=== PATIENT | male | born 1960 | race Caucasian/White ===

== ENCOUNTER 2020-01-10 10:32 | Emergency (ER) | payer SELFPAY ==
--- NOTE | ~2020-01-10 | XR_ITS ---
EXAMINATION: XR ankle RT min 3V EXAM DATE: 01/10/2020 11:02 INDICATION: Initial encounter following injury, with pain of the right ankle. TECHNIQUE: Right ankle frontal, lateral and oblique projections obtained and reviewed. There is no p rior study for comparison. FINDINGS: There is oblique fracture through the right distal fibular metaphysis extending into the s uperolateral aspect of the ankle joint. There is about 1 cm of lateral translation of the fibula, natalya us with respect to the tibial plafond, with disruption of the deltoid ligament, widened mortise media lly. Closed, posttraumatic fracture. IMPRESSION: Right distal fibular metaphyseal fracture into widened mortise. Deltoid ligament disrupt ion. Reviewed, dictated and finalized at location A. IMPRESSION: Right distal fibular metaphyseal fracture into widened mortise. De ltoid ligament disruption.
--- NOTE | ~2020-01-10 | XR_ITS ---
EXAMINATION: XR ankle RT 2V EXAM DATE: 01/10/2020 11:58 INDICATION: Post reduction. TECHNIQUE: Frontal and lateral projections of the right ankle. Comparison is made to prior examinati on from earlier same date. FINDINGS: There is been partial reduction in the amount of lateral translation right talus with respe ct to the tibial plafond. Oblique distal fibular fracture into widened mortise again demonstrated. Di srupted deltoid ligament. A splint has been applied. Orthopedic consult. IMPRESSION: Splinted partially reduced right ankle fracture dislocation. Reviewed, dictated and finalized at location A.
[2020-01-10 10:41] VITALS: BP 142/76; PULSE 62; RESP 18; TEMP 36.3; O2SAT 99
--- NOTE | 2020-01-10 10:53 | ED.LOWEXIN ---
HPI - Extremity Injury (Lower) General Chief Complaint: Extremity Injury, Lower Stated Complaint: r ankle injury Time Seen by Provider: 01/10/20 10:44 Source: patient Mode of arrival: ambulatory Limitations: no limitations History of Present Illness HPI Narrative: Patient is a 59-year-old male who presents to the emergency department with complaint of right ankle injury. Patient was going down a hill and slipped with his left foot causing his left ankle to invert. Patient felt a pop. He crawled back up the hill and was able to put some weight on his right foot, but felt as though his ankle was unstable. Patient has noticed swelling. Patient denies any other injuries or complaints. He took Advil on the way to the hospital. complaint: ankle injury Onset (ago): hour(s) Injury: Right: ankle Type of Injury: inversion Place: street/outdoors Context: fall Associated symptoms: snap/pop sensation, swelling and able to partially bear weight Other symptoms: none Treatments prior to arrival: NSAIDS (400 mg ibuprofen just prior to arrival) Related Data Home Medications Medication Instructions Recorded Confirmed cholecalciferol (vitamin D3) 10 mcg PO DAILY 01/10/20 glucosamine sulfate [Glucosamine] 500 mg PO BID 01/10/20 ycdiaizwpyji-xyf-onwy-FA-vit K 1 tablet PO DAILY 01/10/20 [Adults Multivitamin] Allergies Allergy/AdvReac Type Severity Reaction Status Date / Time No Known Allergies Allergy Verified 01/10/20 10:45 Review of Systems Review of Systems: All systems reviewed & are unremarkable except as noted in HPI and below PMFSH Past Medical History Medical History No significant past medical history Surgical History Surgical History No significant past surgical history Social History Social History (Updated 01/10/20 @ 11:00 by Mariposa Choe MD) Smoking status: Never smoker Gender identity (if verbalized by the patient): Male Exam Const: General: cooperative, no acute distress and alert Nutritional Appearance: well nourished Orientation/consciousness: patient oriented x3 Limitations: no limitations HENMT: Mouth: Yes lip normal and Yes moist mucous membranes Cardio: Rate: regular rate Rhythm: regular rhythm Peripheral pulses: posterior tibial pulses present bilateral 2+ and dorsalis pedis present bilateral 2+ Skin: General skin exam: normal color Neuro: General: patient oriented x3 Cognition (Neuro): normal cognition Speech: normal speech Extrem: General: no clubbing, cyanosis or edema Right lower extremity: lower leg Details: other (Pretibial venous varicosities) and ankle Details: tenderness Location: of the lateral malleolus and of the medial malleolus and swelling Details: diffusely Psych: Mental Status: mental status grossly normal Affect: normal affect Attitude: cooperative Course Course Emergency Course: Patient with distal fibular fracture Consultations Consultation #1: Case discussed with Dr. Desir. Advised patient should call the office first thing Sunday morning to arrange for follow-up care and potentially go to surgery that day if possible. Date: 01/10/20 Time: 12:00 Vital Signs Vital signs: Vital Signs Temperature 97.3 F L 01/10/20 10:41 Pulse Rate 62 01/10/20 10:41 Respiratory Rate 18 01/10/20 10:41 Blood Pressure 142/76 H 01/10/20 10:41 Pulse Oximetry 99 01/10/20 10:41 Temperature 97.3 F L 01/10/20 10:41 Pulse Rate 62 01/10/20 10:41 Respiratory Rate 18 01/10/20 10:41 Blood Pressure 142/76 H 01/10/20 10:41 Pulse Oximetry 99 01/10/20 10:41 Procedures Orthopedic Splinting/Casting Injury #1: Splinting/Casting Date: 01/10/20 Splinting/Casting Time: 11:45 Side: right Lower Extremity Injury Location: ankle Lower Extremity Immobilizer: posterior splint and stirrup splint S
[2020-01-10 12:49] VITALS: BP 138/83; PULSE 61; RESP 18; O2SAT 99
== END 2020-01-10 13:30 | disposition home or self-care (01) ==
PROVIDERS: Emergency Provider Emergency Medicine
DX: S89.391A Other physeal fracture of lower end of right fibula, initial encounter for closed fracture (principal); S93.421A Sprain of deltoid ligament of right ankle, initial encounter; W17.81XA Fall down embankment (hill), initial encounter
CPT/HCPCS: 29515; 73600; 73610; 99284

== ENCOUNTER 2020-01-13 01:05 | Day surgery (SDC) | payer SELFPAY ==
[2020-01-12 14:09] VITALS: BMI 29.1
[2020-01-13] VITALS (7 sets, daily range): BP systolic 117–151; BP diastolic 70–93; PULSE 70–80; RESP 10–20; TEMP 36.1–36.7; O2SAT 98–100; BMI 29.4
--- NOTE | ~2020-01-13 | XR_ITS ---
EXAMINATION: XR surgery orthopedic DATE: 01/13/2020 11:26 INDICATION: Right ankle fracture fixation TECHNIQUE: 5 fluoroscopic spot images of the right ankle were obtained during procedure performed by Dr. Desir. Radiologist was not present for the imaging or procedure. The amount of fluoroscopy time used during this procedure was 7.5 minutes. COMPARISON: 01/10/2020 FINDINGS: Interval reduction and internal fixation of the oblique distal fibular fracture with interfragmentary screws and lateral plate and screws. A metallic button lies along the base of the medial malleolus a t the end of one of 2 lucent tract extending across the distal tibia and fibula likely for tightrope type syndesmotic fixation. Alignment of the fixation appears near-anatomic. Tibiotalar joint space ap pears normal with congruent ankle mortise. No other fractures identified. Expected small amount of po stoperative gas in the surrounding soft tissues. IMPRESSION: 1. Near-anatomic alignment post internal fixation of a distal fibular fracture including distal tibio fibular syndesmotic fixation. See procedure note for further detail. Reviewed, dictated and finalized at location A. IMPRESSION: 1. Near-anatomic alignment post internal fixation of a distal fibular fracture including distal tibiofibular syndesmotic fixation. See procedure note for furt her detail.
[2020-01-13] MEDS: LACTATED RINGERS 1,000 ML 30 ML IV CONT ×2 (08:20→11:56)
[2020-01-13] MEDS: CELECOXIB 200 MG CAPSULE PO (08:44)
--- NOTE | 2020-01-13 09:06 | WPDANESEPPF ---
Anes - Initial Pre Proc Eval Procedure: Operation Date: 01/13/20 09:30 Proposed Procedures p Closed Reduction, Possible Splinting, Possible Open Reduction Internal Fixation Lateral Malleolous Right Ankle - Nitesh Desir MD Date/Time: 01/13/20 09:06 Surgeon: Nitesh Desir MD Pre Op Diagnosis: Right Ankle Fracture Patient Data Age: 59 Gender: M Height: 6 ft Weight: 98.5 kg Last Vital Signs Temp 98.1 F 01/13/20 08:20 Pulse 76 01/13/20 08:20 Resp 16 01/13/20 08:20 BP 139/93 H 01/13/20 08:20 Pulse Ox 98 01/13/20 08:20 Allergies Allergy/AdvReac Type Severity Reaction Status Date / Time No Known Allergies Allergy Verified 01/13/20 08:38 Home Medications Medication Instructions Recorded Confirmed Type cholecalciferol (vitamin D3) 10 mcg PO DAILY 01/10/20 01/13/20 History glucosamine sulfate [Glucosamine] 500 mg PO BID 01/10/20 01/13/20 History htkfthoamufp-qcj-vlmc-FA-vit K 1 tablet PO DAILY 01/10/20 01/13/20 History [Adults Multivitamin] Patient hx anesthesia problems: none Family hx anesthesia problems: none PMFSH Social History Social History Smoking status: Never smoker Gender identity (if verbalized by the patient): Male Anes - Eval Final PreProcedure Day of Procedure 01/13/20 09:06 Patient weight: normal Heart: regular rate and rhythm Lungs: clear to auscultation Airway: Mallampati scale class II Neurological: alert and oriented Last oral intake: >/= 8 hours ASA classification: II Emergent: no Anesthetic plan: proceed Anesthesia type and monitoring: general LMA and standard monitoring Informed Consent: The patient's anesthetic plan and its attendant risks and benefits were discussed with the patient/family/POA. Questions were solicited and answers provided to the satisfaction of the patient/family/POA.
--- NOTE | 2020-01-13 09:35 | WPDHPUPDATE1 ---
History and Physical Update Update Date/Time: 01/13/20 09:35 History and Physical has been reviewed, including an updated exam of the patient. There are NO changes in the patient's condition. Risks, benefits, and alternatives have been discussed and questions answered. Patient agrees to proceed with procedure.
[2020-01-13] MEDS: ceFAZolin 2 GM/D5W 50 ML 2 GM/50 ML BAG IVPB (09:41)
--- NOTE | 2020-01-13 12:05 | PM.OP ---
Procedure Note - Brief Procedure Note - Brief Date of procedure: 01/13/20 Pre-op diagnosis: Right Ankle Fracture Post-op diagnosis: same Procedure performed: ORIF RIGHT LATERAL MALLEOLUS WITH SYNDESMOSIS TIGHT ROPE Anesthesia: GETA Surgeon: Nitesh Desir MD Estimated blood loss (mL): 20 Drains: No Complications: No immediate complications Condition: stable Disposition: PACU
--- NOTE | 2020-01-13 13:06 | OP_ITS ---
DATE OF PROCEDURE: 01/13/2020 PREOPERATIVE DIAGNOSIS: Right lateral malleolus fracture with widened syndesmosis. POSTOPERATIVE DIAGNOSIS: Right lateral malleolus fracture with widened syndesmosis. PROCEDURE: Open reduction internal fixation of the right lateral malleolus with syndesmotic fixation. ANESTHESIA: General. COMPLICATIONS: None. INDICATIONS: This is a 59-year-old male who fell injuring his right ankle and sustained a displaced lateral malleolus fracture with syndesmotic widening. He was indicated for right open reduction internal fixation lateral malleolus and syndesmotic fixation. DESCRIPTION OF PROCEDURE: The patient was taken to the operating room in stable condition and placed in supine position. General anesthesia was induced and then the right lower extremity was prepped and draped sterilely from the toes to the thigh. The skin was in good condition. There was no blistering. There was some mild swelling. There was no significant ecchymosis on the lateral side. Tourniquet was inflated and the incision was made over the lateral aspect of the ankle down to the subcutaneous tissues. Dissection continued and the superficial peroneal nerve was identified and was preserved and dissection continued down the fracture site. The wound was irrigated thoroughly, and then hematoma was removed from the fracture site and then using the fracture clamps, the main part of the fracture was reduced to anatomic position. There was also another part of the fracture, which was a floating piece in the posterior aspect of the fibula that was also reduced to the main fracture fragments. A 6 hole Arthrex plate then was placed over the fracture fragments bridging the fracture fragments in good position, and then 2 lag screws were used to lag the posterior fragment capturing that and securing into the main fracture fragment. Once that was performed, then under fluoroscopic guidance, a tightrope type implant was placed through both the fibula and the tibia, and then was sutured down in standard fashion. X-rays were then taken. The medial side of the ankle was stressed and there was no widening and it appeared that the reduction of the fibula had reduced the syndesmosis well and I feel the medial widening was not significant. Fixation showed that both the AP, mortise and lateral views were in anatomic position. The wound was irrigated thoroughly. The tourniquet was deflated. Bleeders were cauterized. The deeper layers were approximated with 2-0 Vicryl suture, subcutaneous tissue approximated 3-0 Vicryl and skin was approximated with moe. Wounds were washed, placed sterile dressing and then a Scott Skinner plaster splint was applied. The patient was extubated and sent to Recovery. Rocío I MT: Steve
== END 2020-01-13 13:32 | disposition home or self-care (01) ==
PROVIDERS: PCP Internal Medicine; Visit Provider Orthopaedic Surgery
PROC: (CPT 27829; principal; 2020-01-13 09:30)
DX: S82.61XA Displaced fracture of lateral malleolus of right fibula, initial encounter for closed fracture (principal); S93.431A Sprain of tibiofibular ligament of right ankle, initial encounter; W19.XXXA Unspecified fall, initial encounter
CPT/HCPCS: 27829; 27792; A9270; C1713; J0690; J1100; J1170; J2250; J2405; J2704; J3010; J7120

== ENCOUNTER 2020-05-03 15:18 | Outpatient (NON) | payer SELFPAY | END 2020-05-03 15:19 | PROVIDERS: PCP Internal Medicine; Visit Provider Orthopaedic Surgery | DX: S90.01XA Contusion of right ankle, initial encounter (principal) | CPT/HCPCS: 36415; 87070; 87075; 87147; 87186; 87205 ==

== ENCOUNTER 2020-08-23 10:19 | Outpatient (CLI) | payer OTHER, SELFPAY ==
[2020-08-23 10:48] LABS: Hematocrit 46.2 % (42.0-52.0); Hemoglobin 15.5 g/dL (14.0-18.0); Mean Corpuscular HGB Conc 33.5 g/dl (32-36); Mean Corpuscular Hemoglobin 29.4 pg (26-34); Mean Corpuscular Volume 87.5 fl (80-100); Mean Platelet Volume 10.2 fl (7.4-10.4); Platelet Count Result 235 k/mm3 (150-375); Red Blood Count 5.28 M/mm3 (4.6-6.20); Red Cell Distribution Width 12.7 % (11.5-14.5); White Blood Count 9.2 K/mm3 (4.5-10.0)
[2020-08-23 11:03] LABS: CRP 1.6 mg/dL (<1.0)
== END 2020-08-23 10:20 | disposition home or self-care (01) ==
PROVIDERS: PCP Internal Medicine; Visit Provider Orthopaedic Surgery
DX: S90.01XA Contusion of right ankle, initial encounter (principal); T81.41XA Infection following a procedure, superficial incisional surgical site, initial encounter
CPT/HCPCS: 36415; 85027; 86140

== ENCOUNTER 2020-08-25 14:53 | Observation (INO) | payer OTHER, SELFPAY ==
[2020-08-23 14:00] VITALS: BMI 26.0
[2020-08-24] VITALS (11 sets, daily range): BP systolic 116–150; BP diastolic 69–91; PULSE 65–90; RESP 10–18; TEMP 36.2–36.7; O2SAT 96–100
[2020-08-24] MEDS: CELECOXIB 200 MG CAPSULE PO (10:32)
[2020-08-24] MEDS: ACETAMINOPHEN 500 MG TABLET 1000 MG PO (10:32)
[2020-08-24] MEDS: LACTATED RINGERS 1,000 ML 30 ML IV CONT ×2 (10:40→13:38)
--- NOTE | 2020-08-24 11:23 | WPDHPUPDATE1 ---
History and Physical Update Update Date/Time: 08/24/20 11:23 History and Physical has been reviewed, including an updated exam of the patient. There are NO changes in the patient's condition. Risks, benefits, and alternatives have been discussed and questions answered. Patient agrees to proceed with procedure.
--- NOTE | 2020-08-24 11:29 | WPDANESEPP ---
Anes - Eval Pre Procedure Procedure: Operation Date: 08/24/20 11:30 Proposed Procedures p Removal Hardware Right Ankle - Nitesh Desir MD s Incision And Drainage Right Ankle - Nitesh Desir MD Date/Time: 08/24/20 11:29 Pre Op Diagnosis: Right Ankle Infected Hardware Patient Data Age: 59 Gender: M Height: 1.83 m Weight: 86.4 kg Last Vital Signs Temp 36.6 C 08/24/20 09:59 Pulse 90 08/24/20 09:59 Resp 14 08/24/20 09:59 BP 139/91 H 08/24/20 09:59 Pulse Ox 100 08/24/20 09:59 Allergies Allergy/AdvReac Type Severity Reaction Status Date / Time No Known Allergies Allergy Verified 08/23/20 13:42 Home Medications Medication Instructions Recorded Confirmed Type Adults Multivitamin 1 tablet PO DAILY 01/10/20 08/24/20 History ascorbate calcium (vitamin C) 1,000 mg PO DAILY 08/23/20 08/24/20 History suavziz-qyzctjfav-uljh 1 tablet PO DAILY 08/23/20 08/24/20 History cholecalciferol (vitamin D3) 500 mcg PO DAILY 08/23/20 08/24/20 History turmeric 500 mg PO DAILY 08/23/20 08/24/20 History Patient hx anesthesia problems: none Family hx anesthesia problems: none PMFSH Past Medical History Medical History (Updated 08/23/20 @ 13:27 by Nitesh Desir MD) Abscess involving suture Hematoma of right ankle Surgical History Surgical History History of open reduction and internal fixation (ORIF) procedure Rt ankle Social History Social History Smoking status: Never smoker Living arrangements: with family Gender identity (if verbalized by the patient): Male Spiritual care concerns: No Exam Day of Procedure 08/24/20 11:29 Patient weight: overweight Heart: regular rate and rhythm Lungs: normal air movement Airway: Mallampati scale class II Neurological: alert and oriented
--- NOTE | 2020-08-24 11:35 | WPDANESEFPP ---
Anes - Eval Final PreProcedure Day of Procedure 08/24/20 11:35 Patient weight: overweight Heart: regular rate and rhythm Lungs: clear to auscultation Airway: Mallampati scale class II Neurological: alert and oriented Last oral intake: >/= 8 hours ASA classification: II Emergent: no Anesthetic plan: proceed Anesthesia type and monitoring: general LMA and standard monitoring Informed Consent: The patient's anesthetic plan and its attendant risks and benefits were discussed with the patient/family/POA. Questions were solicited and answers provided to the satisfaction of the patient/family/POA.
--- NOTE | 2020-08-24 13:35 | PM.PROC ---
Procedure Note - Detailed Date of procedure: 08/24/20 Pre-op diagnosis: Right Ankle Infected Hardware Post-op diagnosis: same Procedure performed: REMOVAL OF HARDWARE AND I AND D RIGHT ANKLE Description of procedure: THE PATIENT WAS TAKEN TO THE OR AND PLACED UNDER GENERAL ANESTHESIA. THE RIGHT LEG WAS PREPPED AND DRAPED IN THE USUAL FASHION. AN INCISION WAS MADE OVER THE OLD INCISION ON THE LATERAL SIDE OF THE ANKLE. DISSECTION CONTINUED DOWN TO BONE AND THE HARDWARE WAS SEEN. THERE WAS PURULENCE OOZING FROM THE WOUND. CULTURES AND A GRAM STAIN WERE TAKEN. VANCOMYCIN WAS STARTED. THE HARDWARE WAS REMOVED IN ITS ENTIRETY. A SMALL INCISION WAS MADE ON THE MEDIAL SIDE OF THE ANKLE IN ORDER TO REMOVE THE TIGHTROPE BUTTON. THE FRACTURE WAS HEALED COMPLETELY. THERE WAS NO SIGN OF NONUNION. THERE WAS NO SIGN OF GROSS OSTEOMYELITIS. THE SURFACE OF THE BONE AND PERIOSTEUM WERE DEBRIDED. THE SCREW HOLES WERE CURETTED TO BLEEDING BONE. THE WOUND WAS IRRIGATED WITH 4 LITERS OF ANTIBIOTIC FLUID. THE SKIN WAS APPROXIMATED WITH 3-O PROLINE. THERE WAS SOME TENSION ON THE INCISION BUT THE SKIN EDGES WERE PINK. THE WOUNDS WERE WASHED AND A STERILE DRESSING WAS PLACED. THE PATIENT WAS EXTUBATED AND SENT TO RECOVERY ROOM. Anesthesia: GLMA Surgeon: Nitesh Desir MD Estimated blood loss (mL): 30 Drains: No Packing: No Pathology: other (CULTURES WERE SENT.) Complications: No immediate complications Condition: stable Disposition: PACU
[2020-08-24] MEDS: fentaNYL CITRATE INJ (*CRX) 100 MCG/2 ML VIAL 25 MCG IV PUSH ×4 (14:00→14:18)
--- NOTE | 2020-08-24 14:17 | SUR.PHASEI ---
[phone] sbar faxed floor notified
--- NOTE | 2020-08-24 15:01 | ADMGEN ---
This patient, Onofre Choi, was admitted to Medical Room 254-01. Patient/family oriented to hospital policies and general routines including ID bracelet, bed and alarms, visiting hours, pain management, procedures, bathroom and other care routines, personal items, smoking policy, room service/diet, and visiting hours. Information on how to activate the Rapid Response Team has been discussed. Patient/Family are encouraged to report perceived risks to care and to ask questions if they do not understand what they are told or what they should do.
[2020-08-24] MEDS: SODIUM CHLORIDE 0.9% IV 1,000 ML 125 ML IV CONT (15:42)
[2020-08-24] MEDS: KETOROLAC 15 MG/ML VIAL (*BKC) IM (17:10)
[2020-08-24] MEDS: DOCUSATE SODIUM 100 MG CAPSULE PO (17:10)
--- NOTE | ~2020-08-25 | XR_ITS ---
EXAMINATION: XR surgery orthopedic DATE: 08/24/2020 13:05 INDICATION: Orthopedic instrumentation removal at the right ankle TECHNIQUE: 3 fluoroscopic images of the right ankle were obtained during procedure performed by Dr. Rosa Elena ramirez. Radiologist was not present for the imaging or procedure. The amount of fluoroscopy time used during this procedure was 0.6 minutes. COMPARISON: None. FINDINGS: Interval removal of prior internal fixation instrumentation with residual lucent screw and fixation w casey tracks at the distal right tibia and fibula. No retained radiopaque foreign bodies. Bone alignmen t appears essentially anatomic. No acute fractures identified. Mild right tibiotalar osteoarthritis w ith mild nonuniform joint space narrowing. IMPRESSION: 1. Expected appearance post internal fixation instrumentation removal the right ankle. See procedure note for further detail. Reviewed, dictated and finalized at location A. CIPAL DATA ARCHITECT
--- NOTE | ~2020-08-25 | XR_ITS ---
EXAMINATION: XR chest PICC line EXAM DATE: 08/26/2020 11:58 INDICATION: PICC placed. TECHNIQUE: Portable AP frontal chest x-ray was obtained. There is no prior study for comparison. FINDINGS: There is a left-sided PICC line with tip projecting just above the cavoatrial junction, bel ow the bianca level. There is no catheter kinking. The lungs are clear. There are no pleural effusions. Cardiac silhouette is prominent but magnified on this AP technique. There is no pneumothorax suspected. The bones and soft tissues are unremarka ble. IMPRESSION: PICC line in position. Reviewed, dictated and finalized at location A. ICAL SERVICES DIRECTOR IMPRESSION: PICC line in position.
[2020-08-25] MEDS: KETOROLAC 15 MG/ML VIAL (*BKC) IM ×2 (00:04→05:52)
[2020-08-25 03:36] VITALS: BP 124/75; PULSE 73; RESP 16; TEMP 36.3; O2SAT 98
[2020-08-25 05:42] LABS: Basophils Percent Auto 0.3 % (0.2-1.2); Eosinophils Absolute Auto 0.1 K/mm3 (0-0.3); Eosinophils Percent Auto 0.6 % (0-4.4); Hematocrit 37.3 % (42.0-52.0); Hemoglobin 12.5 g/dL (14.0-18.0); Immature Granulocyte Absolute 0.03 K/mm3 (0.00-0.031); Immature Granulocyte Percent A 0.3 % (0-0.5); Lymphocytes Absolute Auto 1.39 K/mm3 (0.9-3.2); Lymphocytes Percent Auto 16.1 % (18.3-44.2); Mean Corpuscular HGB Conc 33.5 g/dl (32-36); Mean Corpuscular Hemoglobin 29.3 pg (26-34); Mean Corpuscular Volume 87.4 fl (80-100); Mean Platelet Volume 10.4 fl (7.4-10.4); Monocytes Absolute Auto 0.7 K/mm3 (0.1-0.6); Neutrophils Absolute Auto 6.4 K/mm3 (1.3-6.7); Neutrophils Percent Auto 74.7 % (45.5-73.1); Platelet Count Result 214 k/mm3 (150-375); Red Blood Count 4.27 M/mm3 (4.6-6.20); Red Cell Distribution Width 12.5 % (11.5-14.5); White Blood Count 8.6 K/mm3 (4.5-10.0)
[2020-08-25] MEDS: CHOLECALCIFEROL 1,000 UNITS TABLET 1000 UNITS PO (09:02)
[2020-08-25] MEDS: ASCORBIC ACID 500 MG TABLET 1000 MG PO (09:02)
[2020-08-25] MEDS: DOCUSATE SODIUM 100 MG CAPSULE PO ×2 (09:02→17:28)
[2020-08-25 09:31] VITALS: BP 127/72; PULSE 71; RESP 16; TEMP 36.7; O2SAT 98
--- NOTE | 2020-08-25 11:19 | WPDANESPN ---
Anes - Prog Note Post-Op Date/Time: 08/25/20 11:19 Cardiovascular status: normal Respiratory status: normal Airway patency: baseline Mental status: baseline Post-Op hydration status: normal Vital Signs: Last Vital Signs Temp 36.7 C 08/25/20 09:31 Pulse 71 08/25/20 09:31 Resp 16 08/25/20 09:31 BP 127/72 08/25/20 09:31 Pulse Ox 98 08/25/20 09:31 Pain Score (VAS): 2 I/O: Intake & Output 08/24/20 08/25/20 08/25/20 23:59 07:59 15:59 Intake Total 540 550 240 Output Total 600 Balance 540 -50 240 Laboratory Tests 08/25/20 05:27 08/25/20 05:27 WBC 8.6 RBC 4.27 L Hgb 12.5 L D Hct 37.3 L MCV 87.4 MCH 29.3 MCHC 33.5 RDW 12.5 Plt Count 214 MPV 10.4 Immature Gran % (Auto) 0.3 Neut % (Auto) 74.7 H Lymph % (Auto) 16.1 L [place] % (Auto) 8.0 Eos % (Auto) 0.6 Baso % (Auto) 0.3 Lymph # (Auto) 1.39 [place] # (Auto) 0.7 H Eos # (Auto) 0.1 Baso # (Auto) 0.0 Abs Immat Gran (auto) 0.03 Absolute Neuts (auto) 6.4 Absolute Nucleated RBC 0.0 Nucleated RBC % 0.0 Microbiology 08/24/20 12:23 Ankle Right Gram Stain - Final 08/24/20 12:23 Ankle Right Anaerobic Culture - Preliminary Post-procedural complaints: none Patient Feedback: Patient satisfied with anesthetic care.
--- NOTE | 2020-08-25 12:41 | WPDINFPN2 ---
Progress Note: A&P Assessment and Plan (1) Abscess or cellulitis of ankle: Status: Acute Assessment and Plan: OTILIA infected hardware, POD # 1 REC Ancef # 1 / 28 days (minimum 14 days, but I think will require 28). BCs Subjective Date/time seen: 08/25/20 12:41 Objective Data Vital Signs Vital Signs: Vital Signs - 24 hr 08/24/20 13:40 08/24/20 13:51 08/24/20 13:55 Temperature 36.3 C L 36.3 C L Pulse Rate 65 70 69 Respiratory Rate 12 16 10 L Blood Pressure 118/78 147/73 H 138/69 Pulse Oximetry 100 100 100 08/24/20 14:06 08/24/20 14:10 08/24/20 14:28 Temperature 36.3 C L Pulse Rate 76 68 73 Respiratory Rate 16 10 L 12 Blood Pressure 132/87 135/90 140/88 Pulse Oximetry 100 97 98 08/24/20 14:36 08/24/20 15:36 08/24/20 19:36 Temperature 36.2 C L 36.7 C 36.4 C L Pulse Rate 78 83 72 Respiratory Rate 16 18 16 Blood Pressure 135/84 150/82 H 116/72 Pulse Oximetry 100 98 96 08/24/20 23:36 08/25/20 03:36 08/25/20 09:31 Temperature 36.3 C L 36.3 C L 36.7 C Pulse Rate 76 73 71 Respiratory Rate 16 16 16 Blood Pressure 121/73 124/75 127/72 Pulse Oximetry 98 98 98 Intake/Output Intake/Output: Intake & Output 08/22/20 08/23/20 08/24/20 08/25/20 23:59 23:59 23:59 23:59 Intake Total 1040 790 Output Total 600 Balance 1040 190 Meds/Results Medications: Active Medications Generic Name Dose Route Start Last Admin Trade Name Freq PRN Reason Stop Dose Admin Acetaminophen 650 mg 08/24/20 13:50 Acetaminophen 325 Mg Tablet PO Q6H PRN Pain Rated 1-3 Hydrocodone Bitart/Acetaminophen 1 tab 08/24/20 13:50 Hydrocodone/Acetaminophen (*Crx) 7.5-325 Mg Tablet PO Q3H PRN Pain Rated 4-6 Ascorbic Acid 1,000 mg 08/25/20 09:00 08/25/20 09:02 Ascorbic Acid 500 Mg Tablet PO 1,000 mg DAILY JANEL Administration Diazepam 5 mg 08/24/20 13:50 Diazepam (*Crx) 5 Mg Tablet PO Q8H PRN Muscle Spasm Docusate Sodium 100 mg 08/24/20 17:00 08/25/20 09:02 Docusate Sodium 100 Mg Capsule PO 100 mg BID JANEL Administration Cefazolin Sodium 2 gm in 50 mls @ 100 mls/hr 08/25/20 18:00 Ancef 2 Gm/D5w 50 Ml IVPB Q6HR JANEL Magnesium Hydroxide 30 ml 08/24/20 13:46 Magnesium Hydroxide Susp 30 Ml Udc PO BID PRN Constipation Morphine Sulfate 3 mg 08/24/20 13:50 Morphine Sulfate (*Crx) 4 Mg/Ml Inj IV PUSH Q3H PRN Pain Rated 7-10 Non-Formulary Medication 1 tablet 08/25/20 09:00 Rjphevr-Guoisdcqh-Crce PO 09/24/20 09:01 DAILY [facility] Ondansetron HCl 4 mg 08/24/20 13:50 Ondansetron Inj 4 Mg/2 Ml Vial IV PUSH Q4H PRN Nausea And Vomiting Vitamin D 1,000 units 08/25/20 09:00 08/25/20 09:02 Cholecalciferol 1,000 Units Tablet PO 1,000 units DAILY JANEL Administration Radiology Results: ITS Impressions Intraoperative X-Ray 08/24/20 15:22 IMPRESSION: 1. Expected appearance post internal fixation instrumentation removal the right ankle. See procedure note for further detail. Labs Labs: Laboratory Results - last 24 hr 08/25/20 05:27 WBC 8.6 RBC 4.27 L Hgb 12.5 L D Hct 37.3 L MCV 87.4 MCH 29.3 MCHC 33.5 RDW 12.5 Plt Count 214 MPV 10.4 Immature Gran % (Auto) 0.3 Neut % (Auto) 74.7 H Lymph % (Auto) 16.1 L [place] % (Auto) 8.0 Eos % (Auto) 0.6 Baso % (Auto) 0.3 Lymph # (Auto) 1.39 [place] # (Auto) 0.7 H Eos # (Auto) 0.1 Baso # (Auto) 0.0 Abs Immat Gran (auto) 0.03 Absolute Neuts (auto) 6.4 Absolute Nucleated RBC 0.0 Nucleated RBC % 0.0
[2020-08-25 13:13] VITALS: BP 130/75; PULSE 66; RESP 18; TEMP 36.5; O2SAT 99
--- NOTE | 2020-08-25 13:56 | CONS_ITS ---
DATE OF CONSULTATION: 08/25/2020 REASON FOR CONSULTATION: Abscess, right ankle. HISTORY OF PRESENT ILLNESS: No previous severe right ankle or right leg trauma. No previous operations. No known vascular compromise. He suffered a fracture in December, requiring ORIF performed on January 12. Unfortunately, he developed a suture abscess laterally postop along with a hematoma medially. He has been on a variety of antibiotics including trimethoprim sulfa and cephalexin most recently, the latter completed about 3 weeks before admission. He has had persistent redness, drainage with a sinus tract medially, abnormal contour, pain and swelling. There is no fever, chills, or sweats. He did have a swab performed on May 03, which revealed a susceptible Staph aureus. He was taken to the operating room electively yesterday and admitted and has been given vancomycin and Ancef. Consultation requested. He underwent removal of hardware with I and D of the right ankle. Findings included lateral ankle purulence. All hardware was removed and there was good fracture healing. He is now postop. No fever, chills, sweats, and no other trauma in December. He has had no intolerance to cephalexin. MEDICATIONS: No immunosuppressants now nor on admission. HABITS: No tobacco. No alcohol. ALLERGIES: NONE KNOWN. PAST MEDICAL HISTORY: He denies any chronic medical illnesses. No other orthopedic or vascular implants. REVIEW OF SYSTEMS: 14-point review otherwise negative. FAMILY HISTORY: Not pertinent to his present illness. SOCIAL HISTORY: He has several grown children, usually very active. He lives in [place], self-employed. . PHYSICAL EXAMINATION: GENERAL: This is a middle-aged male, who appears younger than his actual age. No acute distress. VITAL SIGNS: Afebrile, 71, 16, 127/72, 98% on room air. SKIN: No generalized rashes. Warm and dry. EENT: The conjunctivae are normal. The oropharynx, oral mucosa normal. Pupils equal, round, and reactive to light. NECK: No adenopathy, mass, or meningismus. LUNGS: Clear to auscultation and percussion. CHEST: Equal expansion. Normal AP diameter. No indwelling vascular devices. CARDIAC: Regular rate and rhythm. No murmur, gallop, or rub. Pulses are 2+. ABDOMEN: Nontender, soft. No organomegaly. No masses. Nondistended. Normal bowel sounds. EXTREMITIES: He has a surgical dressing over the right ankle. He has no proximal erythema, tenderness, or abnormal contour. He is able to wiggle his toes well and he has good flexion, extension of his ankle, though not normal. NEUROLOGIC: Normal light touch sensation. LABORATORY DATA: From the operating room yesterday, many white cells, few gram-positive cocci. Culture in process. His white count 8.6, hemoglobin 12.5, platelets are 214, differential normal. CRP is 1.6. RADIOLOGY: I personally reviewed his preoperative ankle x-rays, which show appropriate placement of his hardware. His intraoperative x-rays show no abnormal findings. ASSESSMENT: 1. 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 This has been present for a number of months. I doubt hematogenous spread, more likely this is cutaneous in origin. 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 Also due to the above, he developed an abscess. No periostitis nor osteomyelitis are evident by clinical evaluation nor operative inspection. 2. ORIF, December 2019 with appropriate healing. RECOMMENDATIONS: 1. Begin Ancef day 1. I think he will need 4 weeks of therapy. If he does quite well, we could shorten this to 2 weeks instead, followed by oral therapy. 2. CMP to investigate for any metabolic illnesses which may be complicating the above. 3. Blood cu
--- NOTE | 2020-08-25 16:59 | PM.PNORT ---
Progress Note: A&P Additional Plan POD 1 DOINGF WELL. WILL REQUIRE IV ABX. WILL GET PIC LINE TMRW THEN DC WHEN IV HOME INFUSION IS APPROVED. WILL FOLLOW. Time Spent With Patient Time with patient: 15 - 25 minutes Subjective Subjective Date/Time Seen: 08/25/20 16:59POD 1 DOING WELL. PAIN CONTROLLED. NO CALF PAIN Exam Extrem: Other: VSS AFEBRILE DRESSING WITH POSTOP DRAINAGE, DRESSING REMOVED. SKIN LOOKS SOMEWHAT DUSKY. BUT STILL BLANCHES. CALF SOFT ANKLE ROM IS SMOOTH WITH NO PAIN. CELLULITIS IS DECREASED SIGNIFICANTLY. PRAVENA BANDAGE PLACED BY MYSELF Objective Data Vital Signs Vital Signs: Vital Signs - 24 hr 08/24/20 19:36 08/24/20 23:36 08/25/20 03:36 Temperature 36.4 C L 36.3 C L 36.3 C L Pulse Rate 72 76 73 Respiratory Rate 16 16 16 Blood Pressure 116/72 121/73 124/75 Pulse Oximetry 96 98 98 08/25/20 09:31 08/25/20 13:13 Temperature 36.7 C 36.5 C Pulse Rate 71 66 Respiratory Rate 16 18 Blood Pressure 127/72 130/75 Pulse Oximetry 98 99 Intake/Output Intake/Output: Intake & Output 08/22/20 08/23/20 08/24/20 08/25/20 23:59 23:59 23:59 23:59 Intake Total 1040 1030 Output Total 600 Balance 1040 430 Meds/Results Medications: Active Medications Generic Name Dose Route Start Last Admin Trade Name Freq PRN Reason Stop Dose Admin Acetaminophen 650 mg 08/24/20 13:50 Acetaminophen 325 Mg Tablet PO Q6H PRN Pain Rated 1-3 Hydrocodone Bitart/Acetaminophen 1 tab 08/24/20 13:50 Hydrocodone/Acetaminophen (*Crx) 7.5-325 Mg Tablet PO Q3H PRN Pain Rated 4-6 Ascorbic Acid 1,000 mg 08/25/20 09:00 08/25/20 09:02 Ascorbic Acid 500 Mg Tablet PO 1,000 mg DAILY JANEL Administration Diazepam 5 mg 08/24/20 13:50 Diazepam (*Crx) 5 Mg Tablet PO Q8H PRN Muscle Spasm Docusate Sodium 100 mg 08/24/20 17:00 08/25/20 09:02 Docusate Sodium 100 Mg Capsule PO 100 mg BID JANEL Administration Cefazolin Sodium 2 gm in 50 mls @ 100 mls/hr 08/25/20 18:00 Ancef 2 Gm/D5w 50 Ml IVPB Q6HR JANEL Magnesium Hydroxide 30 ml 08/24/20 13:46 Magnesium Hydroxide Susp 30 Ml Udc PO BID PRN Constipation Morphine Sulfate 3 mg 08/24/20 13:50 Morphine Sulfate (*Crx) 4 Mg/Ml Inj IV PUSH Q3H PRN Pain Rated 7-10 Non-Formulary Medication 1 tablet 08/25/20 09:00 Ldadatt-[id number]-Itpr PO 09/24/20 09:01 DAILY [facility] Ondansetron HCl 4 mg 08/24/20 13:50 Ondansetron Inj 4 Mg/2 Ml Vial IV PUSH Q4H PRN Nausea And Vomiting Vitamin D 1,000 units 08/25/20 09:00 08/25/20 09:02 Cholecalciferol 1,000 Units Tablet PO 1,000 units DAILY JANEL Administration Radiology Results: ITS Impressions Intraoperative X-Ray 08/24/20 15:22 IMPRESSION: 1. Expected appearance post internal fixation instrumentation removal the right ankle. See procedure note for further detail. Labs Labs: Laboratory Results - last 24 hr 08/25/20 05:27 WBC 8.6 RBC 4.27 L Hgb 12.5 L D Hct 37.3 L MCV 87.4 MCH 29.3 MCHC 33.5 RDW 12.5 Plt Count 214 MPV 10.4 Immature Gran % (Auto) 0.3 Neut % (Auto) 74.7 H Lymph % (Auto) 16.1 L Ramsey % (Auto) 8.0 Eos % (Auto) 0.6 Baso % (Auto) 0.3 Lymph # (Auto) 1.39 Ramsey # (Auto) 0.7 H Eos # (Auto) 0.1 Baso # (Auto) 0.0 Abs Immat Gran (auto) 0.03 Absolute Neuts (auto) 6.4 Absolute Nucleated RBC 0.0 Nucleated RBC % 0.0
[2020-08-25 17:25] VITALS: BP 121/73; PULSE 60; RESP 18; TEMP 36.7; O2SAT 98
[2020-08-25] MEDS: ceFAZolin 2 GM/D5W 50 ML 2 GM/50 ML BAG IVPB ×2 (17:28→23:26)
[2020-08-25 20:00] VITALS: O2SAT 98
[2020-08-25 21:21] VITALS: BP 123/72; PULSE 68; RESP 14; TEMP 36.5; O2SAT 98
--- NOTE | 2020-08-25 21:40 | PC.NURSE ---
Pt states Dr. Desir told him not to use gel packs since wound vac is in place.
[2020-08-26 02:00] VITALS: BP 118/70; PULSE 55; RESP 16; TEMP 36.6; O2SAT 97
[2020-08-26] MEDS: ceFAZolin 2 GM/D5W 50 ML 2 GM/50 ML BAG IVPB ×3 (05:30→17:30)
[2020-08-26 06:00] VITALS: BP 126/71; PULSE 55; RESP 16; TEMP 36.5; O2SAT 99
[2020-08-26 06:12] LABS: Alanine Aminotransferase 17 U/L (4-50); Albumin Level 3.4 g/dL (3.5-5.1); Alkaline Phosphatase 69 U/L (38-126); Anion Gap 2 mmol/L (8-16); Aspartate Amino Transferase 25 U/L (17-59); Bilirubin,Total 0.3 mg/dL (0.2-1.3); Blood Urea Nitrogen 15 mg/dL (9-20); Calcium 8.9 mg/dL (8.4-10.2); Carbon Dioxide 34 mmol/L (22-30); Chloride 103 mmol/L (98-107); Estimated CRCL calculation 105 ml/min; Estimated Glomerular Filt Rate > 60; Glucose 99 mg/dL (75-110); Potassium 4.1 mmol/L (3.4-5.0); Sodium 139 mmol/L (137-145)
[2020-08-26] MEDS: CHOLECALCIFEROL 1,000 UNITS TABLET 1000 UNITS PO (09:38)
[2020-08-26] MEDS: ASCORBIC ACID 500 MG TABLET 1000 MG PO (09:38)
[2020-08-26] MEDS: DOCUSATE SODIUM 100 MG CAPSULE PO (09:38)
--- NOTE | 2020-08-26 09:40 | PM.PNORT ---
Progress Note: A&P Assessment and Plan (1) Abscess or cellulitis of ankle: Status: Acute Assessment and Plan: POD #2: Removal of right ankle hardware and I&D Continue PT/OT. NWB RLE. Crutches. Fall Risk. Appreciate ID recommendations. PICC line to be placed. Plan for 4 weeks of antibiotics today. Potential for shortening to two weeks and transitioning to oral. Blood cultures pending. Continue pain control. Dispo: Home with IV infusion pending insurance authorization, PICC placement. Subjective Subjective Date/Time Seen: 08/26/20 0830 POD #2: Removal of Hardware RIGHT Ankle No new complaints. Feels 100% better after surgical intervention. Awaiting PT/OT. Anxious to get home. Review of Systems Review of Systems: All systems reviewed & are unremarkable except as noted in HPI and below Constitutional: Constitutional: Denies chills, Denies fever(s), Denies headache(s), Denies lethargy and Reports weakness ENT: Denies headache(s) Cardiovascular: Cardiovascular: Denies chest pain, Denies diaphoresis, Denies lightheadedness, Denies palpitations, Denies dyspnea and Denies dyspnea on exertion Respiratory: Respiratory: Denies cough, Denies dyspnea and Denies dyspnea on exertion Gastrointestinal: Gastrointestinal: Denies constipation, Denies diarrhea, Denies nausea and Denies vomiting Genitourinary: Genitourinary: Denies dysuria, Reports urinary frequency and Denies urinary hesitancy Musculoskeletal: Musculoskeletal: Reports arthralgias ( Right ankle) and Reports joint swelling ( right ankle) Neurologic: Denies headache(s) and Reports weakness Endocrine: Endocrine: Denies palpitations Exam Const: General: comfortable and no acute distress Resp: Effort & Inspection: normal respiratory effort Cardio: Rate: regular rate Rhythm: regular rhythm GI: Inspection: non-distended GI Palp: Yes Soft to palpation and No Tenderness to palpation present (GI) Neuro: General: gait normal ( nonweightbearing right lower extremity) Cognition (Neuro): normal cognition Extrem: Right lower extremity: ankle ( Prevena dressing on the lateral aspect of the right ankle.) Details: tenderness ( Diffuse), swelling ( mild) Details: diffusely, abnormal ROM ( limited, due to recent surgical intervention but improving.) and ecchymosis Other: Incision on the medial malleolus with dressing with serosanguineous drainage. Dressing removed. Incision well approximated. Sutures intact. No signs of wound dehiscence. No drainage. Wound redressed with Vaseline gauze and covered with an 4 x 4 gauze and Tegaderm. Prevena dressing in place on the right lateral ankle. Surrounding tissue without redness or warmth. Mild swelling. Good capillary refill in the toes. Moves toes. Palpable pedal pulse. Neurovascular intact. Psych: Mental Status: mental status grossly normal Objective Data Vital Signs Vital Signs: Vital Signs - 24 hr 08/25/20 13:13 08/25/20 17:25 08/25/20 20:00 Temperature 36.5 C 36.7 C Pulse Rate 66 60 Respiratory Rate 18 18 Blood Pressure 130/75 121/73 Pulse Oximetry 99 98 98 08/25/20 21:21 08/26/20 02:00 08/26/20 06:00 Temperature 36.5 C 36.6 C 36.5 C Pulse Rate 68 55 L 55 L Respiratory Rate 14 16 16 Blood Pressure 123/72 118/70 126/71 Pulse Oximetry 98 97 99 Intake/Output Intake/Output: Intake & Output 08/23/20 08/24/20 08/25/20 08/26/20 23:59 23:59 23:59 23:59 Intake Total 1040 2120 640 Output Total 2300 2200 Balance 1040 -180 -1560 Meds/Results Medications: Active Medications Generic Name Dose Route Start Last Admin Trade Name Freq PRN Reason Stop Dose Admin Acetaminophen 650 mg 08/24/20 13:50 Acetaminophen 325 Mg Tablet PO Q6H PRN Pain Rated 1-3 Hydrocodone Bitart/Acetaminophen 1 tab 08/24/20 13:50 Hydrocodone/Acetaminophen (*Crx) 7.5-325 Mg Tablet PO Q3H PRN Pain Rated 4-6 Ascorbic Acid 1,000 mg 08/25/20 09:00 08/26/20 09:
--- NOTE | 2020-08-26 10:49 | PC.NURSE ---
Michelle here to initiate PICC line access. Per Michelle, patient unable to use crutches with PICC line due to risk of clotting. Notified Vesna Keen PT that patient will need instructions on walker use. Vesna aware and will be back this afternoon to teach walker use, stairs, etc. Patient verbalizes understanding and states he will access walker for home.
[2020-08-26] MEDS: LIDOCAINE HCL 1% PF INJ 5 ML VIAL INFILTRATE (11:20)
[2020-08-26 14:00] VITALS: BP 133/73; PULSE 93; RESP 18; TEMP 36.3; O2SAT 99
--- NOTE | 2020-08-26 14:00 | WPDINFPN2 ---
Progress Note: A&P Assessment and Plan (1) Abscess or cellulitis of ankle: Status: Acute Assessment and Plan: 1. OTILIA infected hardware, POD # 2. Intraoperative culture also with S aureus, almost certainly the same strain as preop. 2. Past ankle frature, healed REC Ancef # 2 / 28 days. BCs ngsf. PICC in. Written orders given for home therapy, ok discharge planning. Subjective Date/time seen: 08/26/20 14:00 Interval history: no pain in ankle at rest, no rash no diarrhea Exam Narrative: Exam Narrative: afebrile Const: General: no acute distress Resp: Effort & Inspection: normal respiratory effort Auscultation: clear to auscultation bilaterally Cardio: Rate: regular rate Rhythm: regular rhythm Heart sounds: no murmurs GI: Inspection: non-distended GI Palp: Yes Soft to palpation and No Tenderness to palpation present (GI) Skin: General skin exam: normal color and no rashes or lesions noted Extrem: Other: foot ankle dressed Objective Data Vital Signs Vital Signs: Vital Signs - 24 hr 08/25/20 17:25 08/25/20 20:00 08/25/20 21:21 Temperature 36.7 C 36.5 C Pulse Rate 60 68 Respiratory Rate 18 14 Blood Pressure 121/73 123/72 Pulse Oximetry 98 98 98 08/26/20 02:00 08/26/20 06:00 Temperature 36.6 C 36.5 C Pulse Rate 55 L 55 L Respiratory Rate 16 16 Blood Pressure 118/70 126/71 Pulse Oximetry 97 99 Intake/Output Intake/Output: Intake & Output 08/23/20 08/24/20 08/25/20 08/26/20 23:59 23:59 23:59 23:59 Intake Total 1040 2120 880 Output Total 2300 2200 Balance 1040 -180 -1320 Meds/Results Medications: Active Medications Generic Name Dose Route Start Last Admin Trade Name Freq PRN Reason Stop Dose Admin Acetaminophen 650 mg 08/24/20 13:50 Acetaminophen 325 Mg Tablet PO Q6H PRN Pain Rated 1-3 Hydrocodone Bitart/Acetaminophen 1 tab 08/24/20 13:50 Hydrocodone/Acetaminophen (*Crx) 7.5-325 Mg Tablet PO Q3H PRN Pain Rated 4-6 Ascorbic Acid 1,000 mg 08/25/20 09:00 08/26/20 09:38 Ascorbic Acid 500 Mg Tablet PO 1,000 mg DAILY JANEL Administration Diazepam 5 mg 08/24/20 13:50 Diazepam (*Crx) 5 Mg Tablet PO Q8H PRN Muscle Spasm Docusate Sodium 100 mg 08/24/20 17:00 08/26/20 09:38 Docusate Sodium 100 Mg Capsule PO 100 mg BID JANEL Administration Cefazolin Sodium 2 gm in 50 mls @ 100 mls/hr 08/25/20 18:00 08/26/20 13:13 Ancef 2 Gm/D5w 50 Ml IVPB 100 mls/hr Q6HR JANEL Administration Magnesium Hydroxide 30 ml 08/24/20 13:46 Magnesium Hydroxide Susp 30 Ml Udc PO BID PRN Constipation Morphine Sulfate 3 mg 08/24/20 13:50 Morphine Sulfate (*Crx) 4 Mg/Ml Inj IV PUSH Q3H PRN Pain Rated 7-10 Non-Formulary Medication 1 tablet 08/25/20 09:00 Hbrunzy-Hgbtjaorq-Sftv PO 09/24/20 09:01 DAILY [facility] Ondansetron HCl 4 mg 08/24/20 13:50 Ondansetron Inj 4 Mg/2 Ml Vial IV PUSH Q4H PRN Nausea And Vomiting Sodium Chloride 10 ml 08/26/20 14:00 Central Line Flush IV PUSH Q8HR JANEL Sodium Chloride 10 ml 08/26/20 13:13 Central Line Flush IV PUSH PRN PRN with TPN bag changes Sodium Chloride 20 ml 08/26/20 13:13 Central Line Flush IV PUSH PRN PRN after blood draws Vitamin D 1,000 units 08/25/20 09:00 08/26/20 09:38 Cholecalciferol 1,000 Units Tablet PO 1,000 units DAILY JANEL Administration Radiology Results: ITS Impressions Intraoperative X-Ray 08/24/20 15:22 IMPRESSION: 1. Expected appearance post internal fixation instrumentation removal the right ankle. See procedure note for further detail. Chest X-Ray 08/26/20 12:01 IMPRESSION: PICC line in position. Labs Labs: Laboratory Results - last 24 hr 08/26/20 05:20 Sodium 139 Potassium 4.1 Chloride 103 Carbon Dioxide 34 H Anion Gap 2 L BUN 15 Creatinine 0.70 Estim Creat Clear Calc 105 Estimated GFR > 60 Glucose 99
[2020-08-26] MEDS: CENTRAL LINE FLUSH 10 ML IV PUSH (14:06)
--- NOTE | 2020-08-26 16:17 | PM.DS ---
DS: Admitting Diagnosis Admitting Diagnosis Admitting Diagnosis: Right Ankle Infected Hardware DS: Discharge Diagnosis Discharge Diagnosis (1) Abscess or cellulitis of ankle: Status: Acute Assessment and Plan: POD #2: Removal of right ankle hardware and I&D Continue PT/OT. NWB RLE. Crutches. Fall Risk. Appreciate ID recommendations. PICC line to be placed. Plan for 4 weeks of antibiotics today. Potential for shortening to two weeks and transitioning to oral. Blood cultures pending. Continue pain control. Dispo: Home with IV infusion pending insurance authorization, PICC placement. DS: Summary Hospital Course Reason for hospitalization: removal of hardware and I and D of right ankle. Infected right ankle. Hospital Course: 59-year-old male admitted status post removal of hardware of the right ankle and I&D. Infectious disease physician consult for assistance with IV antibiotics recommendations. The patient will be going home with IV antibiotics. He had a stable hospitalization and his pain was well controlled. He was ambulating in the garay with the use of crutches and nonweightbearing on the right lower extremity. He does have potential for poor wound healing on the lateral aspect of the right ankle show a Prevena wound VAC dressing was placed by Dr. Desir. He will go home with home health an IV infusion. He will follow up in our office 1 week for re-evaluation of his wound. Status at Discharge Functional status at discharge: uses cane/walker ( Uses crutches) Overall status at discharge: patient is back to baseline Time Spent with Patient Time attestation: Total time spent providing and/or coordinating discharge services: Exam Const: General: comfortable and no acute distress Resp: Effort & Inspection: normal respiratory effort Cardio: Rate: regular rate Rhythm: regular rhythm GI: Inspection: non-distended GI Palp: Yes Soft to palpation and No Tenderness to palpation present (GI) Neuro: General: gait normal ( nonweightbearing right lower extremity) Cognition (Neuro): normal cognition Extrem: Right lower extremity: ankle ( Prevena dressing on the lateral aspect of the right ankle.) Details: tenderness ( Diffuse), swelling ( mild) Details: diffusely, abnormal ROM ( limited, due to recent surgical intervention but improving.) and ecchymosis Other: Incision on the medial malleolus with dressing with serosanguineous drainage. Dressing removed. Incision well approximated. Sutures intact. No signs of wound dehiscence. No drainage. Wound redressed with Vaseline gauze and covered with an 4 x 4 gauze and Tegaderm. Prevena dressing in place on the right lateral ankle. Surrounding tissue without redness or warmth. Mild swelling. Good capillary refill in the toes. Moves toes. Palpable pedal pulse. Neurovascular intact. Psych: Mental Status: mental status grossly normal DS: Data Data Completed and Pending Labs on day of discharge: Labs from last 24 hours 08/26/20 05:20 Sodium 139 Potassium 4.1 Chloride 103 Carbon Dioxide 34 H Anion Gap 2 L BUN 15 Creatinine 0.70 Estim Creat Clear Calc 105 Estimated GFR > 60 Glucose 99 Calcium 8.9 Total Bilirubin 0.3 AST 25 ALT 17 Alkaline Phosphatase 69 Total Protein 6.0 L Albumin 3.4 L Preliminary micro results at discharge 08/25/20 14:40 Blood Culture - Preliminary Blood 08/25/20 14:40 Blood Culture - Preliminary Blood 08/24/20 12:23 Anaerobic Culture - Preliminary Ankle Right Aerobic Culture - Preliminary Staphylococcus aureus Discharge Plan Discharge Attending physician on discharge: Nitesh Desir Consulting providers: Devaughn Chua Discharging Clinician: Nitesh Desir Anticipated Discharge Date/Time: 08/26/20 15:00 Patient Disposition: Home Health Service Activity: no shower, no driving and follow weight bearing status Diet: as tolerated Wound Care Inst
== END 2020-08-26 18:09 | disposition home health service (06) ==
LOC: ANHSURGERY 15:14 → ANH2MED 15:14
PROVIDERS: Internal Medicine Infectious Disease; Admitting Provider Orthopaedic Surgery; PCP Internal Medicine; Visit Provider Orthopaedic Surgery
PROC: (CPT 20680; principal; 2020-08-24 11:30)
PROC: (CPT 20680; 2020-08-24 11:30)
DX: L02.415 Cutaneous abscess of right lower limb (principal); T84.69XA Infection and inflammatory reaction due to internal fixation device of other site, initial encounter; B95.61 Methicillin susceptible Staphylococcus aureus infection as the cause of diseases classified elsewhere
CPT/HCPCS: 20680; 36415; 36569; 80053; 85025; 87040; 87070; 87075; 87147; 87186; 87205; 96365; 96366; 97110; 97116; 97161; 97165; 97530; A9270; C1751; G0378; G0379; J0690; J1100; J1885; J2250; J2405; J2704; J3010; J3370; J7030; J7120

== ENCOUNTER 2020-09-23 08:54 | Outpatient (RCR) | payer OTHER, SELFPAY ==
[2020-09-02 09:51] LABS: Hematocrit 43.1 % (42.0-52.0); Hemoglobin 14.7 g/dL (14.0-18.0); Mean Corpuscular HGB Conc 34.1 g/dl (32-36); Mean Corpuscular Hemoglobin 29.8 pg (26-34); Mean Corpuscular Volume 87.2 fl (80-100); Mean Platelet Volume 10.5 fl (7.4-10.4); Platelet Count Result 263 k/mm3 (150-375); Red Blood Count 4.94 M/mm3 (4.6-6.20); Red Cell Distribution Width 12.2 % (11.5-14.5); White Blood Count 6.9 K/mm3 (4.5-10.0)
[2020-09-02 10:05] LABS: Anion Gap -1 mmol/L (8-16); Blood Urea Nitrogen 17 mg/dL (9-20); CRP < 0.5 mg/dL (<1.0); Calcium 9.7 mg/dL (8.4-10.2); Carbon Dioxide 34 mmol/L (22-30); Chloride 100 mmol/L (98-107); Estimated Glomerular Filt Rate > 60; Glucose 91 mg/dL (75-110); Potassium 4.1 mmol/L (3.4-5.0); Sodium 133 mmol/L (137-145)
[2020-09-09 10:01] LABS: Hematocrit 41.9 % (42.0-52.0); Hemoglobin 14.2 g/dL (14.0-18.0); Mean Corpuscular HGB Conc 33.9 g/dl (32-36); Mean Corpuscular Hemoglobin 28.9 pg (26-34); Mean Corpuscular Volume 85.3 fl (80-100); Mean Platelet Volume 10.6 fl (7.4-10.4); Platelet Count Result 249 k/mm3 (150-375); Red Blood Count 4.91 M/mm3 (4.6-6.20); Red Cell Distribution Width 12.2 % (11.5-14.5); White Blood Count 6.6 K/mm3 (4.5-10.0)
[2020-09-09 10:23] LABS: Anion Gap 3 mmol/L (8-16); Blood Urea Nitrogen 16 mg/dL (9-20); CRP 0.6 mg/dL (<1.0); Calcium 9.8 mg/dL (8.4-10.2); Carbon Dioxide 35 mmol/L (22-30); Chloride 98 mmol/L (98-107); Estimated Glomerular Filt Rate > 60; Glucose 85 mg/dL (75-110); Potassium 4.3 mmol/L (3.4-5.0); Sodium 136 mmol/L (137-145)
[2020-09-16 09:25] LABS: Hematocrit 42.8 % (42.0-52.0); Hemoglobin 14.5 g/dL (14.0-18.0); Mean Corpuscular HGB Conc 33.9 g/dl (32-36); Mean Corpuscular Hemoglobin 29.4 pg (26-34); Mean Corpuscular Volume 86.8 fl (80-100); Mean Platelet Volume 10.5 fl (7.4-10.4); Platelet Count Result 199 k/mm3 (150-375); Red Blood Count 4.93 M/mm3 (4.6-6.20); Red Cell Distribution Width 12.2 % (11.5-14.5); White Blood Count 5.7 K/mm3 (4.5-10.0)
[2020-09-16 09:48] LABS: Potassium 4.2 mmol/L (3.4-5.0)
[2020-09-16 10:04] LABS: Anion Gap 4 mmol/L (8-16); Blood Urea Nitrogen 16 mg/dL (9-20); CRP < 0.5 mg/dL (<1.0); Calcium 9.5 mg/dL (8.4-10.2); Carbon Dioxide 34 mmol/L (22-30); Chloride 100 mmol/L (98-107); Estimated Glomerular Filt Rate > 60; Glucose 96 mg/dL (75-110); Sodium 138 mmol/L (137-145)
== END 2020-12-01 23:59 | disposition home or self-care (01) ==
LOC: ANHVASCINF 08:54
PROVIDERS: PCP Internal Medicine; Visit Provider Internal Medicine
DX: Z45.2 Encounter for adjustment and management of vascular access device (principal); T84.62 Infection and inflammatory reaction due to internal fixation device of leg
CPT/HCPCS: 36415; 36592; 80048; 85027; 86140; 99211; G0463

== ENCOUNTER 2021-09-29 09:41 | Outpatient (CLI) | payer OTHER, SELFPAY ==
[2021-09-29 10:24] LABS: Influenza Control Valid (Valid); SARS-CoV-2 Ag Positive (Negative)
== END 2021-09-29 09:42 | disposition home or self-care (01) ==
LOC: CHSLAB 09:43
PROVIDERS: PCP Internal Medicine; Visit Provider Internal Medicine
DX: U07.1 COVID-19 (principal); J06.9 Acute upper respiratory infection, unspecified
CPT/HCPCS: 87081; 87426; 87804; 87880; C9803